=== PATIENT | male | born 1950 | race Caucasian/White ===

== ENCOUNTER → 2017-05-23 | Outpatient (CLI) | payer OTHER ==
[~2017-05-23] MED LIST: AMIO200T PO; AMIO400T2 PO; ASPI81 PO; ATOR40TA49 PO; CLON0.5T PO; JANT5TAB2 PO; LEVO150T7 PO; METO50TA PO; OMEP20TA PO
--- NOTE | 2017-05-24 09:33 | RADRPT ---
EXAM DATE/TIME: 05/23/2017 16:08 [place] COMPARISON: No previous studies available for comparison. INDICATIONS : <<Left neck noted by exam CONSULTATION: Mr. Dominguez has no recent imaging studies of the neck. By exam he has small node that is palpable in t he left. There are 2 options at this point, one to have him come in for ultrasound of the left neck and biopsy at the same sitting. The second option would be made contrast CT scan of the neck that can be evalu ated for the adenopathy and schedule the biopsy as appropriate. Thank you this consultation. Hari Gregg MD FACR on May 24, 2017 at 9:29 Board Certified Radiologist. This report was verified electronically.
== END ==
LOC: HRAD 15:59
PROVIDERS: ATTEND Otolaryngology Otolaryngology/Facial Plastic Surgery
DX: R22.0 Localized swelling, mass and lump, head (principal)
CPT/HCPCS: 76140